=== PATIENT | female | born 1945 | race Caucasian/White ===

== ENCOUNTER 2019-08-26 05:00 | Day surgery (SDC) | payer OTHER ==
[~2019-08-26] VITALS: Ht 157.5 cm; Wt 61.2 kg
[~2019-08-26 05:00] MED LIST: AMOX1TAB5 PO; ATORVASTATIN CA10 MG PO; CARDURA1 MG PO; DILT-CD120 MG PO; DOXAZOSIN MESYLA2 MG PO; INDAPAMIDE2.5 MG PO; LISINOPRIL40 MG PO; TRAM1TAB98 PO
[2019-08-26] MEDS ORDERED: NEURONTIN800 MG PO (07:46)
[2019-08-26] MEDS ORDERED: CLONAZEPAM0.5 MG PO (07:46)
[2019-08-26] MEDS ORDERED: PERCOCET 5-3251 EACH PO (07:46)
[2019-08-26] MEDS ORDERED: COLACE100 MG PO (07:46)
== END 2019-08-27 08:00 | disposition home or self-care (01) ==
LOC: CIR.AMB 05:00 → O/R 05:00 → SURH 05:00 → O/R 10:50 → SURH 11:00 → EDSTATUS 11:00 → CIR.AMB 08-27 08:00 → O/R 08-27 13:51 → SURH 08-27 13:51
DX: M48.062 Spinal stenosis, lumbar region with neurogenic claudication (principal)